=== PATIENT | female | born 1945 | race Caucasian/White ===

== ENCOUNTER → 2017-02-21 | Outpatient (CLI) | payer MEDICARE | END | disposition home or self-care (01) | LOC: WOUND 08:36 | PROVIDERS: ATTEND Podiatrist Foot & Ankle Surgery | DX: T81.31XD Disruption of external operation (surgical) wound, not elsewhere classified, subsequent encounter (principal); I10 Essential (primary) hypertension; G89.4 Chronic pain syndrome; Z72.89 Other problems related to lifestyle; Y83.8 Other surgical procedures as the cause of abnormal reaction of the patient, or of later complication, without mention of misadventure at the time of the procedure | CPT/HCPCS: G0463; WOU0463 ==

== ENCOUNTER 2017-02-27 13:13 | Emergency (ER) | payer MEDICARE ==
[~2017-02-27] VITALS: Ht 160 cm; Wt 70.0 kg
[2017-02-27 13:20] VITALS: BP 95/60
== END 2017-02-27 16:10 | disposition home or self-care (01) ==
LOC: ED 16:00
DX: Z91.19 Patient's noncompliance with other medical treatment and regimen (principal); I10 Essential (primary) hypertension
CPT/HCPCS: 99281

== ENCOUNTER → 2017-03-01 | Outpatient (CLI) | payer MEDICARE | END | disposition home or self-care (01) | LOC: WOUND 10:38 | PROVIDERS: ATTEND Family Medicine | DX: T81.31XA Disruption of external operation (surgical) wound, not elsewhere classified, initial encounter (principal); I10 Essential (primary) hypertension; G89.4 Chronic pain syndrome; Y83.8 Other surgical procedures as the cause of abnormal reaction of the patient, or of later complication, without mention of misadventure at the time of the procedure | CPT/HCPCS: G0463; WOU0463 ==

== ENCOUNTER 2017-03-06 22:27 | Emergency (ER) | payer MEDICARE ==
[~2017-03-06] VITALS: Ht 165.1 cm; Wt 60.0 kg
[2017-03-06 22:36] VITALS: BP 113/58
== END 2017-03-07 02:07 | disposition home or self-care (01) ==
LOC: ED 03-07 01:40
DX: F10.220 Alcohol dependence with intoxication, uncomplicated (principal); Z72.89 Other problems related to lifestyle; I10 Essential (primary) hypertension
CPT/HCPCS: 99283

== ENCOUNTER 2019-06-13 18:58 | Inpatient (IN) | payer MEDICARE ==
[~2019-06-13] VITALS: Ht 160 cm; Wt 69.9 kg
[2019-06-13 19:42] LABS: BASOPHILS # (AUTO) 0.05 x10^3/uL (0-0.1); BASOPHILS % (AUTO) 1 % (0-1); EOSINOPHILS # (AUTO) 0.01 x10^3/uL (0-0.4); EOSINOPHILS % (AUTO) 0 % (1-7); LYMPHOCYTES % (AUTO) 36 % (22-44); MD NO; MEAN CORPUSCULAR HGB CONC 33.6 g/dL (32.4-35.8); MEAN CORPUSCULAR VOLUME 107.4 fL (80-100); MONOCYTES # (AUTO) 0.39 x10^3/uL (0.2-0.8); MONOCYTES % (AUTO) 4 % (2-9); NEUTROPHILS # (AUTO) 6.33 x10^3/uL (1.8-6.8); NEUTROPHILS % (AUTO) 60 % (42-75); PLATELET COUNT 349 x10^3/uL (130-400); RED BLOOD COUNT 3.58 x10^6/uL (3.82-5.3); RED CELL DISTRIBUTION WIDTH 18.9 % (9.6-15.2)
[2019-06-13 19:52] LABS: ALANINE AMINOTRANSFERASE 27 U/L (12-78); ANION GAP 11 mmol/L (5-15); CHLORIDE 105 mmol/L (98-107); CREATININE 0.71 mg/dL (0.55-1.02)
[2019-06-13 19:56] LABS: ALKALINE PHOSPHATASE 130 U/L (45-117); BILIRUBIN,TOTAL 0.4 mg/dL (0.2-1.0); CREATINE KINASE, TOTAL 391 U/L (26-192); TROPONIN I < 0.015 ng/mL (0.000-0.045)
[2019-06-13 20:10] LABS: CULTURE INDICATED? YES; MICROSCOPIC AUTO
[2019-06-13] MEDS ORDERED: MORPHINE SULFATE 4 MG/ML, 1ML ONE (20:10)
[2019-06-13 20:19] LABS: AMPHETAMINE SCREEN, URINE Positive (Negative); BARBITURATE SCREEN, URINE Negative (Negative); BENZODIAZEPINE SCREEN, URINE Negative (Negative); CANNABINOID SCREEN, URINE Negative (Negative); COCAINE SCREEN, URINE Negative (Negative); METHADONE SCREEN, URINE Negative (Negative); OPIATE SCREEN, URINE Positive (Negative)
[2019-06-13 20:23] LABS: HCT (SEDRATE) 38.4 % (34.6-47.8)
[2019-06-13] MEDS ORDERED: VANCOMYCIN PER PHARMACY MC ONE (20:30)
[2019-06-13] MEDS ORDERED: CEFTRIAXONE PMX 1GM/50ML 50 ML IVPB ONE (20:30)
[2019-06-13] MEDS ORDERED: MORPHINE SULFATE 4 MG/ML, 1ML IVPush PRN (20:30)
--- NOTE | 2019-06-13 20:30 | NUR ---
PT TRANSFERED TO BEDSIDE COMMODE W/ 1 PERSON ASSIST.
--- NOTE | 2019-06-13 20:33 | NUR ---
THIS IS A 73 YO F W/ C/O BILAT ARM AND FOOT REDNESS AND PAIN X1 MONTH. PT STATES SHE WAS SEEN AT [facility] AND GIVEN CREAM BUT HAS NOT USED IT. PT REPORTS NO HOME MEDS "BESIDES METHADONE WHEN I CAN GET IT". PT REPORTS INJECTIONG HERION TODAY FOR PAIN. PT IS A POOR HISTORIAN, EASILY AGITATED. PT RESTING ON GURNEY W/ CALL LIGHT IN REACH. UPDATED ON POC FOR ADMIT.
[2019-06-13] MEDS ORDERED: CEFTRIAXONE PMX 1GM/50ML 50 ML ONE (20:35)
--- NOTE | 2019-06-13 20:47 | NUR ---
LAB CALLED TO COME DRAW SECOND SET OF CULTURES.
--- NOTE | 2019-06-13 20:58 | NUR ---
REPORT GIVEN TO ALVARO CARLOS. ADMITTING PROVIDER IN ROOM.
[2019-06-13] MEDS ORDERED: VANCOMYCIN 1,700 MG in SODIUM CHLORIDE 0.9% 250 ML IV ONE ×2 (21:00→23:00)
[2019-06-13] MEDS ORDERED: SODIUM CHLORIDE 0.9% 1,000 ML IV SCH (21:14)
[2019-06-13] MEDS ORDERED: ENOXAPARIN 40 MG/0.4 ML SQ SCH (21:30)
[2019-06-13] MEDS ORDERED: NICOTINE 7 MG/24 HR PATCH.TD24 TD SCH (21:30)
[2019-06-13] MEDS ORDERED: ONDANSETRON ODT 4 MG PO PRN (21:30)
[2019-06-13] MEDS ORDERED: ONDANSETRON 2MG/ML, 2ML IVPush PRN (21:30)
[2019-06-13] MEDS ORDERED: ACETAMINOPHEN 325 MG TABLET PO PRN (21:30)
[2019-06-13] MEDS ORDERED: LABETALOL 5MG/ML, 20ML IVPush PRN (21:30)
[2019-06-13] MEDS ORDERED: VANCOMYCIN PER PHARMACY MC PRN (21:30)
[2019-06-13] MEDS ORDERED: KETOROLAC 30 MG/1 ML IV PRN (21:30)
[2019-06-13] MEDS ORDERED: PERMETHRIN CRM 5%, 60GM TP SCH (21:30)
[2019-06-13] MEDS ORDERED: DIPHENHYDRAMINE 25 MG CAPSULE PO PRN (21:30)
[2019-06-13] MEDS ORDERED: ENALAPRILAT 1.25 MG/ML, 2ML IVPush PRN (21:30)
[2019-06-13] MEDS ORDERED: PHARMACOKINETIC MONITORING MC PRN (22:30)
[2019-06-13] MEDS ORDERED: AMPICILLIN/SULBACTAM 3 GM in SODIUM CHLORIDE 0.9% 100 ML IV SCH (23:00)
[2019-06-13] MEDS ORDERED: IVERMECTIN 3 MG TAB PO SCH (23:00)
[2019-06-13 23:39] VITALS: BP 161/88
[2019-06-14 00:39] VITALS: BP 157/92
[2019-06-14] MEDS ORDERED: ACETAMINOPHEN 325 MG TABLET PO PRN (07:30)
[2019-06-14] MEDS ORDERED: CARVEDILOL 3.125 MG TABLET PO SCH (07:30)
[2019-06-14] MEDS ORDERED: LORazepam 1MG TABLET PO PRN ×2 (07:30)
[2019-06-14] MEDS ORDERED: LORazepam 0.5MG TABLET PO PRN (07:30)
[2019-06-14 08:29] LABS: BASOPHILS # (AUTO) 0.03 x10^3/uL (0-0.1); BASOPHILS % (AUTO) 0 % (0-1); EOSINOPHILS # (AUTO) 0.01 x10^3/uL (0-0.4); EOSINOPHILS % (AUTO) 0 % (1-7); LYMPHOCYTES # (AUTO) 3.56 x10^3/uL (1-3.4); LYMPHOCYTES % (AUTO) 44 % (22-44); MD NO; MEAN CORPUSCULAR HEMOGLOBIN 36.3 pg (27.0-34.8); MEAN CORPUSCULAR HGB CONC 33.9 g/dL (32.4-35.8); MEAN CORPUSCULAR VOLUME 107.2 fL (80-100); MEAN PLATELET VOLUME 7.8 fL (7.4-10.4); MONOCYTES # (AUTO) 0.32 x10^3/uL (0.2-0.8); MONOCYTES % (AUTO) 4 % (2-9); NEUTROPHILS # (AUTO) 4.22 x10^3/uL (1.8-6.8); NEUTROPHILS % (AUTO) 52 % (42-75); PLATELET COUNT 198 x10^3/uL (130-400); RED BLOOD COUNT 3.78 x10^6/uL (3.82-5.3); RED CELL DISTRIBUTION WIDTH 18.5 % (9.6-15.2)
[2019-06-14 08:33] LABS: ALANINE AMINOTRANSFERASE 27 U/L (12-78); ALBUMIN 2.9 g/dL (3.4-5.0); ANION GAP 10 mmol/L (5-15); CALCIUM 8.1 mg/dL (8.5-10.1); CHLORIDE 103 mmol/L (98-107); CREATININE 0.75 mg/dL (0.55-1.02)
[2019-06-14 08:36] LABS: ALKALINE PHOSPHATASE 129 U/L (45-117); TOTAL PROTEIN 8.4 g/dL (6.4-8.2)
[2019-06-14] MEDS ORDERED: DOCUSATE 100 MG CAPSULE PO SCH (09:00)
[2019-06-14 09:05] VITALS: BP 110/57
[2019-06-14] MEDS ORDERED: ACET325T26 PO (09:58)
[2019-06-14] MEDS ORDERED: NICO-485 TD (09:58)
[2019-06-14] MEDS ORDERED: CARV3.1212 PO (09:58)
[2019-06-14] MEDS ORDERED: DIPH25CA26 PO (09:58)
[2019-06-14] MEDS ORDERED: SODIUM CHLORIDE 0.9% 1,000 ML IV SCH (21:14)
[2019-06-14] MEDS ORDERED: VANCOMYCIN 1,400 MG in SODIUM CHLORIDE 0.9% 250 ML IV SCH (23:00)
[2019-06-20] MEDS ORDERED: IVERMECTIN 3 MG TAB PO SCH (09:00)
[2019-06-27] MEDS ORDERED: IVERMECTIN 3 MG TAB PO ONE (21:30)
== END 2019-06-14 14:11 | disposition home or self-care (01) | DRG 596 ==
LOC: ED 20:02 → EDIP 20:43 → 3N 22:07
PROVIDERS: ADMIT Internal Medicine; ATTEND Internal Medicine
DX: L40.0 Psoriasis vulgaris (principal); L03.317 Cellulitis of buttock; N39.0 Urinary tract infection, site not specified; F10.229 Alcohol dependence with intoxication, unspecified; F17.210 Nicotine dependence, cigarettes, uncomplicated; G89.29 Other chronic pain; I10 Essential (primary) hypertension; L29.9 Pruritus, unspecified; Y90.7 Blood alcohol level of 200-239 mg/100 ml; F11.10 Opioid abuse, uncomplicated; M54.9 Dorsalgia, unspecified; F19.10 Other psychoactive substance abuse, uncomplicated; Z63.8 Other specified problems related to primary support group; Z76.5 Malingerer [conscious simulation]
CPT/HCPCS: 36415; 71045; 80053; 80307; 81001; 82550; 83036; 84443; 84484; 85025; 85651; 86140; 86592; 87040; 87070; 87077; 87086; 87186; 87205; 87806; G0378; J0295; J0696; J1650; J1885; J3370; G0475; J2270; J7030; J7050; Q0163